=== PATIENT | male | born 1965 | race Caucasian/White ===

== ENCOUNTER 2024-06-28 12:43 | Emergency (ER) | payer OTHER ==
[~2024-06-28] VITALS: Ht 175.3 cm; Wt 90.0 kg
[~2024-06-28 12:43] MED LIST: ADEMPAS1 MG PO; ANAPROX DS550 MG PO; COUMADIN10 MG PO; COUMADIN5 MG PO; CYCLOBENZAPRINE10 MG PO; FLUOCINONIDE15 GM TOP; FLUOXETINE HCL20 MG PO; IMITREX5 MG NS; LIDODERM700 MG TOP; LOVASTATIN20 MG PO; NAPROXEN500 MG PO; PERCOCET 5-3251 EACH PO; PRAVACHOL20 MG PO; PRILOSEC20 MG PO; PROVIGIL100 MG PO; PROZAC10 MG PO; SOMA350 MG PO; SUMATRIPTAN5 MG NAS; TRAZODONE HCL150 MG PO; ULTRAM50 MG PO; VIIBRYD40 MG PO; WARFARIN SODIUM5 MG PO; XANAX1 MG PO; ZONEGRAN25 MG PO
--- OUTSIDE RECORDS SUMMARY | 2024-06-28 12:44 | XMS ---
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 E.D. VISIT COUNT (12 MO.) Blaze Veliz ([facility]) 1 ARELIS Leoneony Keren TOTAL 5 NOTE: Visits indicate total known visits. ED/UCC VISIT TRACKING (12 MO.) 06/28/2024 12:44 ARELIS Hector TYPE: Emergency COMPLAINT: - DOG BITE 06/04/2024 13:37 Gordon GUILLEN ([facility]) TYPE: Emergency DIAGNOSES: - Cellulitis of left lower limb - Leg Injury - Leg Pain 02/08/2024 21:33 Gordon HICKMAN [place] ([facility]) TYPE: Emergency DIAGNOSES: - Unspecified injury of right wrist, hand and finger(s), initial encounter - Hand Injury 11/28/2023 12:30 Gordon HICKMAN [place] ([facility]) TYPE: Emergency DIAGNOSES: - Other pulmonary embolism with acute cor pulmonale - Chest Complaint - Chest Pain 11/28/2023 12:30 Gordon HICKMAN [place] ([facility]) TYPE: Emergency DIAGNOSES: - Chronic thromboembolic pulmonary hypertension - Extradural and subdural abscess, unspecified - Obstructive sleep apnea (adult) (pediatric) - Other pulmonary embolism with acute cor pulmonale - Other pulmonary embolism without acute cor pulmonale - Personal history of pulmonary embolism - Primary pulmonary hypertension - Pulmonary hypertension, unspecified INPATIENT VISIT TRACKING (12 MO.) No inpatient visits to display in this time frame [email or web address]
[2024-06-28] MEDS ORDERED: XARELTO20 MG PO (12:52)
[2024-06-28] MEDS ORDERED: GABAPENTIN300 MG PO (12:53)
[2024-06-28] MEDS ORDERED: DULOXETINE HCL60 MG PO (12:53)
[2024-06-28] MEDS ORDERED: SULFAMETHOXAZO1 EAC1 PO (12:53)
[2024-06-28] MEDS ORDERED: AMOX TR-K CLV1 EAC1 PO (13:14)
[2024-06-28 13:21] VITALS: BP 131/73
== END 2024-06-28 13:21 | disposition home or self-care (01) ==
LOC: ED 12:43
DX: S61.052A Open bite of left thumb without damage to nail, initial encounter (principal); W54.0XXA Bitten by dog, initial encounter; Z88.5 Allergy status to narcotic agent; Z79.899 Other long term (current) drug therapy; Z79.01 Long term (current) use of anticoagulants
CPT/HCPCS: 99283